=== PATIENT | female | born 1975 | race Caucasian/White ===

== ENCOUNTER → 2017-10-05 | Outpatient (CLI) | payer BC | LOC: MC.RAD 14:40 | DX: Z12.31 Encounter for screening mammogram for malignant neoplasm of breast (principal) ==

== ENCOUNTER → 2019-10-06 | Outpatient (CLI) | payer BC | LOC: MC.RAD 11:36 | DX: Z12.31 Encounter for screening mammogram for malignant neoplasm of breast (principal); Z01.419 Encounter for gynecological examination (general) (routine) without abnormal findings ==

== ENCOUNTER → 2019-10-10 | Outpatient (CLI) | payer BC | LOC: MC.RAD 13:00 | DX: Z01.419 Encounter for gynecological examination (general) (routine) without abnormal findings (principal); N63.10 Unspecified lump in the right breast, unspecified quadrant ==

== ENCOUNTER → 2019-10-16 | Outpatient (CLI) | payer BC | LOC: MC.RAD 12:56 | DX: N63.10 Unspecified lump in the right breast, unspecified quadrant (principal) | CPT/HCPCS: 30634 ==

== ENCOUNTER → 2020-10-08 | Outpatient (CLI) | payer BC | LOC: MC.RAD 11:15 | DX: Z12.31 Encounter for screening mammogram for malignant neoplasm of breast (principal); Z98.890 Other specified postprocedural states ==

== ENCOUNTER 2021-09-13 22:57 | Day surgery (SDC) | payer BC ==
[~2021-09-13] VITALS: Ht 175.3 cm; Wt 165.0 kg
[2021-09-13 23:18] LABS: BASO % 0.3 % (0.0-2.0); EOS # 0.1 K/mm3 (0.0-0.7); EOS % 0.5 % (0-4.0); GRAN # 10.4 K/mm3 (1.4-6.5); HEMATOCRIT 42.3 % (37.0-47.0); HEMOGLOBIN 14.4 g/dl (12.5-16.0); LYMPH # 1.2 K/mm3 (1.2-3.4); LYMPH % 9.6 % (20.0-51.0); MEAN CELL VOLUME 81 fl (80.0-100.0); MEAN CORPUSCULAR HEMOGLOBIN 28 pg (27.0-31.0); MEAN CORPUSCULAR HGB CONC 34 g/dl (33.0-37.0); MEAN PLATELET VOLUME 9.9 fl (7.4-10.4); MONO # 0.8 K/mm3 (0.1-0.6); MONO % 6.3 % (1.7-9.3); PLATELET COUNT 242 K/mm3 (130-400); RED BLOOD COUNT 5.21 M/mm3 (4.10-5.30); REDCELL DISTRIBUTION WIDTH-CV 12.1 % (11.5-14.5)
[2021-09-13 23:37] LABS: ALBUMIN 4.3 gm/dL (3.5-5.0); BILIRUBIN,TOTAL 0.3 mg/dL (0.2-1.2); C-REACTIVE PROTEIN 0.03 mg/dL (0.00-0.50); CALCIUM 9.2 mg/dL (8.4-10.2); CREATININE, serum 1.03 mg/dL (0.57-1.11); TOTAL PROTEIN 7.8 gm/dL (6.2-8.1)
[2021-09-14] VITALS (7 sets, daily range): BP systolic 90–116; BP diastolic 60–76; PULSE 58–73; TEMP 97.6–98.4
[2021-09-14 00:39] LABS: COLLECTION METHOD CLEAN CATCH
[2021-09-14 01:34] LABS: BUDDING YEAST Present /hpf; MUCOUS Present /lpf; PH 8 (5-8); SQUAMOUS EPITHELIAL None Seen /hpf; URINE APPEARANCE Hazy; URINE BACTERIA None Seen /hpf; URINE BILIRUBIN Negative (NEGATIVE); URINE BLOOD Negative (NEGATIVE); URINE COLOR Yellow; URINE GLUCOSE Negative (NEGATIVE); URINE KETONE 1+ (NEGATIVE); URINE LEUKOCYTE ESTERASE Negative (NEGATIVE); URINE NITRATE Negative (NEGATIVE); URINE PROTEIN(semi-quant) Negative (NEGATIVE); URINE UROBILINOGEN Negative (NEGATIVE)
[2021-09-14] MEDS ORDERED: ROXICODONE 55 MG/TAB PO (14:42)
[2021-09-14] MEDS ORDERED: IBU600 MG PO (14:43)
--- NOTE | 2021-09-14 15:15 | NUR ---
1515- Pt arrives on unit via bed. Oriented to room, parents at beside. Ana, PACU nurse and this RN visualize dressing and bandaids, CDI. Pt drowsy but oriented. Pain 1/10 on pain scale. Ice chips, water and oscar crackers provided, encouraged to advance slowly. Call light within reach.
== END 2021-09-14 19:00 | disposition home or self-care (01) ==
LOC: COL.ER 22:57 → SDCO 09-14 09:27 → OB 09-14 09:27 → SDCO 09-14 19:00
PROVIDERS: Nurse Practitioner
DX: N83.521 Torsion of right fallopian tube (principal); D27.0 Benign neoplasm of right ovary; J30.9 Allergic rhinitis, unspecified; Z80.3 Family history of malignant neoplasm of breast
CPT/HCPCS: OP; J1100; J1170; J1885; J2405; J2704; J2710; J2765; J3010; J7030; J7120; Q9967

== ENCOUNTER → 2021-12-02 | Outpatient (CLI) | payer BC ==
[~2021-12-02] MED LIST: IBU600 MG PO; ROXICODONE 55 MG/TAB PO
== END ==
LOC: MC.RAD 09:56
DX: D24.1 Benign neoplasm of right breast (principal)

== ENCOUNTER → 2024-04-16 | Outpatient (CLI) | payer BC | LOC: MC.RAD 08:44 | DX: Z12.31 Encounter for screening mammogram for malignant neoplasm of breast (principal) ==